=== PATIENT | male | born 1950 | race Caucasian/White ===

== ENCOUNTER 2019-03-08 05:56 | Inpatient (IN) ==
[2019-03-08] MEDS ORDERED: Sodium Chloride 0.9% 1,000 ML PRIMARY IV ONE (06:04)
[2019-03-08] MEDS ORDERED: DEXAMETHASONE PF 10 MG/1 ML VIAL IVP ONE (06:04)
[2019-03-08 06:23] LABS: BASOPHILS # (AUTO) 0.02 10*3/UL; BASOPHILS % (AUTO) 0.2 % (0-1); EOSINOPHILS # (AUTO) 0.24 10*3/UL; EOSINOPHILS % (AUTO) 2.4 % (0-8); Hematocrit [HCT] 47.4 % (42.0-52.0); Hemoglobin [HGB] 15.4 g/dL (14.0-18.0); LYMPHOCYTES # (AUTO) 0.99 10*3/uL; MEAN CORPUSCULAR HEMOGLOBIN 29.3 PG (27-31); MEAN CORPUSCULAR HGB CONC 32.5 g/dL (33-37); MEAN CORPUSCULAR VOLUME 90.3 FL (80-90); MEAN PLATELET VOLUME 9.3 FL (7.4-12.2); MONOCYTES % (AUTO) 6.1 % (5-15); NEUTROPHILS # (AUTO) 7.93 10*3/UL; RED BLOOD COUNT 5.25 10^6/uL (4.70-6.10)
--- NOTE | 2019-03-08 06:29 | EKG ---
[address] [place] [address] Measurements Intervals [place] Rate: 93 P: 40 OH: 156 QRS: -46 QRSD: 109 T: 51 QT: 347 QTc: 397 Interpretive Statements SINUS RHYTHM MARKED LEFT AXIS DEVIATION [QRS AXIS < -30] NONSPECIFIC T-WAVE ABNORMALITY Compared to ECG 01/18/2019 20:20:54 Left-axis deviation now present T-wave abnormality now present Ventricular premature complex(es) no longer present Left anterior fascicular block no longer present Electronically Signed On 03-08-19 08:35:56 MDT by Luis Enrique Green MD [email or web address]
[2019-03-08 06:45] LABS: PLATELET MORPHOLOGY COMMENT NORMAL MORPHOLOGY (NORM); RBC MORPHOLOGY COMMENT NORMAL MORPHOLOGY (NORM); WBC MORPHOLOGY COMMENT NORMAL MORPHOLOGY (NORM)
[2019-03-08 06:46] LABS: BLOOD UREA NITROGEN 15 mg/dL (7-22); BUN/CREATININE RATIO 18.75 (6-20); SERUM ALBUMIN 4.1 g/dL (3.5-4.8)
--- NOTE | 2019-03-08 07:08 | PDOC ---
Dyspnea HPI - General Chief Complaint: Respiratory Complaint Stated Complaint: SOB Date Seen by Provider: 03/08/19 Time Seen by Provider: 05:55 Source: POSITIVE: Patient, EMS Exam Limitations: POSITIVE: No limitations Treatment Prior to Arrival: REPORTS: Other (The patient has received 1 DuoNeb and 2 albuterol neb treatments in route) Nurse's Notes Reviewed & Considered: Yes EMS Report Reviewed & Considered: Verbal - History of Present Illness Initial Comments: The patient is a 68-year-old male who is brought to the emergency department by ambulance with complaints of increased wheezing and shortness of breath. The patient has had upper respiratory symptoms for the past several weeks. He was evaluated here at the end of December and diagnosed with a pneumonitis and treated with Zithromax. He states over the past couple of days he has had increased wheezing and shortness of breath. This worsened tonight and he ended up calling EMS. On arrival the patient's oxygen saturations were in the low to mid 80s on room air. He did have noted bilateral wheezing. He has received a DuoNeb as well as 2 albuterol neb treatments in route. EMS was unable to establish IV access in route. The patient denies any current chest pain however he states he has been having some intermittent pain in his left chest. He denies fevers or chills. He states that he does not wear oxygen typically at home. He has had problems with recurrent sinus infections and has had several procedures done by the ear nose and throat doctor in [place]. - Patient Home Medications Home Medications: Home Medications Amlodipine Bes/Olmesartan Med [Barry 5-40 mg Tablet] 1 ea PO DAILY 01/18/19 Ipratropium Brom HFA Inhaler [Atrovent HFA Inhaler] 200 puff INHALATION BID 01/18/19 Lisinopril [Zestril] 40 mg PO DAILY 01/18/19 - Patient Allergies Allergies/Adverse Reactions: Allergies Allergy/AdvReac Type Severity Reaction Status Date / Time No Known Allergies Allergy Verified 03/08/19 06:02 Past Medical History - tyler STARKEY History: Denies History Cardiovascular History: Hypertension Respiratory History: COPD, Shortness of Breath, Sleep Apnea, Home CPAP Use Gastrointestinal History: Denies History Additional Gastrointestinal History: HEMMORIDS Genitourinary History: Denies History Endocrine History: Denies History Musculoskeletal History: Denies History, Gout, Back Injury Neurological History: Denies History Blood Disorders: Denies History Psychiatric History: Denies History History of Sexually Transmitted Diseases: No Cancer History: Denies History History of MDRO: No History of Other Communicable Diseases: No Alcohol Use: Heavy In the Past 12 Months, Have Used or Abuse Any Substance: None Previous Surgical History: Yes Type / Date of Surgery: Hemorrhoidectomy, LEFT KNEE, RIGHT WRIST Anesthesia Reactions: No Malignant Hyperthermia: No Significant Family History: No pertinent family hx Past Medical History Reviewed: Reviewed - No Changes ROS - Limitations ROS Limitations: No Limitations Constitution: DENIES: Chills, Fever Cardiovascular: DENIES: Chest Pain (No current chest pain, reports intermittent chest pain the left chest) Respiratory: REPORTS: Cough Non Productive, Shortness Of Breath, Wheezing Neurological: DENIES: Headache Gastrointestinal: DENIES: Abdominal Pain, Nausea, Vomitting, Diarrhea Musculoskeletal: REPORTS: Lower Extremity Swelling Eyes: REPORTS: Denies Symptoms ENT: REPORTS: Denies Symptoms Skin: DENIES: Rash Dyspnea Physical Exam - General Appearance General Appearance: REPORTS: Alert, Cooperative, No Acute Distress - HEENT HEENT: POSITIVE: Head Inspection Nml, Eyes Inspection Nml, Ears Inspection Nml, Nose Inspection Nml, Pharynx Inspect. Nml - Neck Neck: DENIES: JVD Present - Respiratory Respiratory: REPORTS: Other (He does have diminished breath sounds bilaterally with some expiratory wheezes noted) - Cardiovascular Cardiovascular: REPORTS: Regular Rate and Rhythm, Heart Sounds Normal Peripheral Pulses: Dorsalis-pedis (R): 2+, Dorsalis-pedis (L): 2+ - Abdomen Abdomen: Soft: (All Quadrants), Denies Tenderness: (All Quadrants) - Skin Skin: REPORTS: Intact, No Rash - Extremities Extremity: Normal ROM: (All Extremities), Normal Inspection: (All Extremities) - Neurological / Psychological Neurological: POSITIVE: Oriented X3, roll operator Normal As Tested, Motor Normal, Sensation Normal, Other (No focal neurologic deficits) Dyspnea Progress - Results Reviewed by me Xrays/CTs/US Reviewed by me: Yes Discussed with Radiologist: Yes Radiology Findings: Chest x-ray shows atelectasis versus infiltrate in the right lower lobe as well as cardiomegaly with some consideration for pulmonary edema per radiologist. Lab Results Reviewed by Me: Yes CBC and BMP: 03/08/19 06:19 05/17/19 06:19 Lab Results:: Laboratory Results 03/08/19 03/08/19 03/08/19 06:19 06:19 06:19 WBC 9.80 RBC 5.25 Hgb 15.4 Hct 47.4 MCV 90.3 H MCH 29.3 MCHC 32.5 L RDW Std Deviation 44.5 RDW Coeff of David 13.6 Plt Count 238 MPV 9.3 Immature Gran % (Auto) 0.2 Neut % (Auto) 81.0 H Lymph % (Auto) 10.1 [place]oula % (Auto) 6.1 Eos % (Auto) 2.4 Baso % (Auto) 0.2 Immature Gran # (Auto) 0.02 Neut # (Auto) 7.93 Lymph # (Auto) 0.99 [place]ata[place]oula # (Auto) 0.60 Eos # (Auto) 0.24 Baso # (Auto) 0.02 WBC Morphology Comment Normal morphology Plt Morphology Comment Normal morphology RBC Morph Comment Normal morphology D-Dimer VBG pH VBG pCO2 VBG HCO3 VBG Base Excess Sodium Potassium Chloride Carbon Dioxide Anion Gap BUN Creatinine Estimated GFR BUN/Creatinine Ratio Glucose Calculated Osmolality Lactic Acid Calcium Magnesium 1.9 Total Bilirubin AST ALT Alkaline Phosphatase Troponin I < 0.012 C-Reactive Protein 2.0 H NT-Pro-B Natriuret Pep 407 H Total Protein Albumin Globulin Albumin/Globulin Ratio 03/08/19 03/08/19 03/08/19 06:19 06:19 06:19 WBC RBC Hgb Hct MCV MCH MCHC RDW Std Deviation RDW Coeff of David Plt Count MPV Immature Gran % (Auto) Neut % (Auto) Lymph % (Auto) [place]oula % (Auto) Eos % (Auto) Baso % (Auto) Immature Gran # (Auto) Neut # (Auto) Lymph # (Auto) [place]ata[place]oula # (Auto) Eos # (Auto) Baso # (Auto) WBC Morphology Comment Plt Morphology Comment RBC Morph Comment D-Dimer 318 H VBG pH VBG pCO2 VBG HCO3 VBG Base Excess Sodium 143 Potassium 3.4 L Chloride 102 Carbon Dioxide 28 Anion Gap 13 BUN 15 Creatinine 0.8 Estimated GFR > 60 BUN/Creatinine Ratio 18.75 Glucose 132 H Calculated Osmolality 298.0 H Lactic Acid 2.2 H Calcium 9.2 Magnesium Total Bilirubin 0.6 AST 37 ALT 49 Alkaline Phosphatase 63 Troponin I C-Reactive Protein NT-Pro-B Natriuret Pep Total Protein 7.0 Albumin 4.1 Globulin 2.9 Albumin/Globulin Ratio 1.40 03/08/19 06:29 WBC RBC Hgb Hct MCV MCH MCHC RDW Std Deviation RDW Coeff of David Plt Count MPV Immature Gran % (Auto) Neut % (Auto) Lymph % (Auto) [place]oula % (Auto) Eos % (Auto) Baso % (Auto) Immature Gran # (Auto) Neut # (Auto) Lymph # (Auto) [place]oula # (Auto) Eos # (Auto) Baso # (Auto) WBC Morphology Comment Plt Morphology Comment RBC Morph Comment D-Dimer VBG pH 7.38 VBG pCO2 46 VBG HCO3 27 H VBG Base Excess 2 Sodium Potassium Chloride Carbon Dioxide Anion Gap BUN Creatinine Estimated GFR BUN/Creatinine Ratio Glucose Calculated Osmolality Lactic Acid Calcium Magnesium Total Bilirubin AST ALT Alkaline Phosphatase Troponin I C-Reactive Protein NT-Pro-B Natriuret Pep Total Protein Albumin Globulin Albumin/Globulin Ratio EKG Interpreted/Reviewed By Me:: Yes EKG Interpretation:: POSITIVE: Other (EKG shows normal sinus rhythm with a rate of 93, no ST segment elevation or depression) - Patient's Progress MDM / ED Course: An IV was established, blood cultures, lactate and venous blood gas were obtained. The patient's venous blood gas revealed a pH of 7.46. EKG shows normal sinus rhythm with no acute ST segment depression or elevation. The patient did receive Solu-Medrol return 125 mg IV. The patient's oxygen saturations were maintained on 4 L per nasal cannula. His chest x-ray shows atelectasis versus infiltrate in the right lower lobe as well as cardiomegaly and increased pulmonary vasculature per radiologist. His white blood cell count is normal and his CRP is mildly elevated at 2.0. His troponin is normal, d- dimer is mildly elevated at 300. His BNP is 400. His clinical presentation is most consistent with COPD exacerbation with possible right lower lobe pneumonia. He did receive Rocephin and Zithromax after cultures were drawn. Because of his elevated d-dimer and hypoxia a CTA of the chest was ordered and is pending at this time. I did discuss the patient with Dr. Tolentino and he is agreed to admit the patient for further care. The patient and his son were in agreement with this plan. - Consult Counseled: POSITIVE: Patient, RE: Lab Results, RE: Radiology Results, RE: DX, RE: Need for F/U Patient Care Time - Estimated PCT Patient Care Time (In Minutes): 30 Vital Signs - Recent Vital Signs Vital Signs: Vital Signs (Last 8 hours) Temp Pulse Resp BP Pulse Ox 03/08/19 06:50 97.4 F 106 H 24 141/88 93 - VS Reviewed Vital Signs Reviewed: Yes Discharge Clinical Impression: COPD exacerbation, Hypoxia, Pneumonia Discharge Disposition: Admit to Inpatient Condition: Fair Follow Up With: NONE,NONE [Primary Care Provider] - Date Decision to Admit to Inpatient: 03/08/19 Time Decision to Admit to Inpatient: 08:30
[2019-03-08 07:33] LABS: VENOUS PH 7.38 (7.32-7.42)
--- NOTE | 2019-03-08 08:08 | DI ---
XR CXR 1VW 03/08/2019 6:06 AM HISTORY: [facility] [place] DI ^Dyspnea Comparison: 11/21/2018. Findings: A single portable frontal view of the chest is submitted. Images demonstrate patchy right lung base opacity. The left lung base is observed by the heart shadow which limits evaluation for consolidation or a pleural effusion. There is no pneumothorax. The cardi omediastinal silhouette is enlarged with mildly increased pulmonary vasculature. The osseous structur es are not significantly changed. Impression: 1. Patchy right lung base opacity could represent atelectasis versus early consolidation in the corre ct clinical setting. 2. Cardiomegaly with mildly increased pulmonary vasculature that could represent technique versus ear ly pulmonary edema in the setting of heart failure. 3. The left lung base is obscured by the heart shadow, limiting evaluation for consolidation or pleur al effusion.
[2019-03-08] MEDS ORDERED: cefTRIAXone Inj 2 GM in Sodium Chloride 0.9% 100 ML IV ONE (08:25)
--- NOTE | 2019-03-08 11:58 | PDOC ---
HPI - History of Present Illness History of Present Illness: This very nice 68-year-old gentleman HEENT in the ER for increased shortness of breath and wheezing he's been having an upper respiratory symptoms for over the last 2 weeks. He said they put him on CPAP he had a sleep study in the past which was abnormal he was hypoxic in the mid 80s in the ER DuoNeb and albuterol treatments were given the also had his sinuses operated on by a physician in [place] does not remember the name He will be admitted for COPD exacerbation Past Medical History Medical History: COPD, emphysema, hypertension Surgical History: Sinus surgery Tobacco Use: Former Smoker In the Past 12 Months, Have Used or Abuse Any of the Following Substance: None Medication / Allergies Home Medications: Home Medications Medication Instructions Recorded Confirmed Amlodipine Bes/Olmesartan Med 1 ea PO DAILY 01/18/19 03/08/19 [Barry 5-40 mg Tablet] Ipratropium Brom HFA Inhaler 200 puff INHALATION BID 01/18/19 03/08/19 [Atrovent HFA Inhaler] Lisinopril [Zestril] 40 mg PO DAILY 01/18/19 03/08/19 Allergies/Adverse Reactions: Allergies Allergy/AdvReac Type Severity Reaction Status Date / Time No Known Allergies Allergy Verified 03/08/19 06:02 Review of Systems - Review of Systems All Systems: Reviewed & No Additional Complaints Except as Stated - Respiratory Respiratory: REPORTS: Cough - Cardiovascular Cardiovascular: DENIES: Negative System Review, Chest Pain, Edema, Syncope, P alpitations, Orthopnea, Paroxysmal Nocturnal Dyspnea, Other, See HPI - Gastrointestinal Gastrointestinal / Abdominal: DENIES: Negative System Review, Nausea, Vomiting, Diarrhea, Constipation, Abdominal Pain, Bloody Stool, Poor Appetite, Heartburn, Regurgitation, Bloating, Lactose Intolerance, Melena, Bright Red Blood per Rectum, Other, See HPI Exam - Vitals Vital Signs: Vital Signs Temperature 97.4 F Temperature Source Temporal Artery Scan Pulse Rate [Pulse Oximeter] 106 Respiratory Rate 24 Blood Pressure [Left Arm] 141/88 Pulse Ox 93 Oxygen Flow Rate 10 Oxygen Delivery Method Non-Rebreather Mask Height 5 ft 8 in Weight 285 lb - General General Appearance: No Acute Distress, Cooperative - Head Head Exam: Normal Inspection, Normocephalic, Atraumatic - Eye Eye Exam: POSITIVE: Normal Appearance, PERRL, EOMI, No Scleral Icterus - Neck Neck Exam: Normal Inspection, Full ROM, No Tenderness, No Lymphadenopathy, No Thyromegaly, JVP is not Raised - Respiratory Respiratory Exam: POSITIVE: Decreased Breath Sounds, Wheezes - Cardiovascular Cardiovascular Exam: POSITIVE: RRR, No Murmur, No Clicks, No Gallops, No Rubs, PMI Non-Displaced - GI/Abdominal GI/Abdominal Exam: POSITIVE: Normal Bowel Sounds, Non Tender, Non Distended, Soft, No Masses, No Hepatomegaly, No Splenomegaly, No Organomegaly - Extremities Extremities Exam: POSITIVE: No Clubbing Present, No Edema Present, No Cyanosis Present Results - Labs CBC and BMP: 03/08/19 06:19 03/08/19 06:19 Assessment and Plan - Patient Problems (1) COPD exacerbation Current Visit: Yes Status: Acute Comment: DuoNeb/steroid OLGA/antibiotics Code(s): J44.1 - Chronic obstructive pulmonary disease with (acute) exacerbation (2) Hypoxia Current Visit: Yes Status: Acute Comment: Secondary to COPD exacerbation and possible pneumonia on chest x-ray will order a CTA Code(s): R09.02 - Hypoxemia (3) Pneumonia Current Visit: Yes Status: Acute Comment: Continue antibiotics for now order CTA Code(s): J18.9 - Pneumonia, unspecified organism
--- NOTE | 2019-03-08 12:06 | DI ---
CT CTA Chest Non-Coronary WWO 03/08/2019 7:40 AM History: [facility] [place], elevated d-dimer Comparison: Chest x-ray from earlier the same day. CTA PE 01/18/2019. Procedure: CT angiography of the pulmonary arteries was performed after the administration of 70 mL o f Ultravist 370 intravenous contrast. Findings: Patient body habitus creates artifact that limits evaluation of fine anatomic detail. Ther e is normal opacification of the pulmonary arteries with no evidence of filling defect. Evaluation of the lungs demonstrates atelectasis and airspace disease in the medial right middle lobe and dependen t left lower lobe. There is no pneumothorax or pleural effusion. No pulmonary nodules are noted. Ther e is mild diffuse bronchial wall thickening without endobronchial lesion. There is no mediastinal or hilar lymphadenopathy. The aorta and branch vessels demonstrate normal cou rse and caliber. Atheromatous aortic and coronary artery calcifications are present. Heart size is en larged with no pericardial effusion. The thyroid exhibits normal CT morphology. The visualized upper abdominal structures are unremarkable. The osseous structures definitely changed. There is no evidence of acute or healing rib fractures. Th ere is mild bilateral gynecomastia. Impression: 1. No main or segmental pulmonary embolism. 2. Medial right middle lobe and dependent left lower lobe atelectasis and airspace disease. Repeat im aging 6 weeks following completion of therapy is recommended in order to ensure resolution. 3. There is mild diffuse bronchial wall thickening without endobronchial lesion. This is a non-specif ic finding that is most commonly seen in the setting of acute or chronic bronchitis, as well as react josé miguel airways disease. 4. Cardiomegaly without pericardial effusion or evidence of pulmonary edema.
[2019-03-08] MEDS ORDERED: FLUTICASONE/SALMETEROL 100/50 UD INHALER INH SCH (12:14)
[2019-03-08] MEDS ORDERED: LIDOCAINE W/ SODIUM BICARB 0.5 ML SYR SUBD PRN (12:14)
[2019-03-08] MEDS ORDERED: AMLODIPINE BES PO SCH (12:14)
[2019-03-08] MEDS ORDERED: OLMESARTAN MED PO SCH (12:14)
[2019-03-08] MEDS ORDERED: ALBUTEROL SULFATE 2.5 MG/3 ML NEB PRN (12:14)
[2019-03-08] MEDS: TIOTROPIUM BROMIDE 18 MCG CAPSULE INH SCH (13:00)
[2019-03-08] MEDS: LISINOPRIL 20 MG TABLET PO SCH (13:06)
[2019-03-08] MEDS: AmLODIPine Tab 5 MG TABLET PO SCH (13:11)
[2019-03-08] MEDS: Olmesartan Tab 40 MG TAB PO SCH (13:15)
[2019-03-08] MEDS: HEPARIN 5000 UNIT/1 ML SUBCUT SCH ×2 (13:16→19:35)
[2019-03-08] MEDS: methylPREDNISolone 125 MG/2 ML VIAL IVP SCH ×2 (13:16→19:35)
[2019-03-08] MEDS: Sodium Chloride 0.9% 1,000 ML PRIMARY IV SCH ×2 (13:17→23:35)
[2019-03-08] MEDS: IPRATROPIUM/ALBUTEROL SULFATE 3 ML NEB NEB SCH ×3 (15:07→18:42)
[2019-03-08] MEDS: ARFORMOTEROL NEB SOLN 15 MCG/2 ML NEB SCH (18:42)
[2019-03-08] MEDS: BUDESONIDE 0.25 MG/2 ML AMPUL.NEB NEB SCH (18:42)
[2019-03-09] MEDS: methylPREDNISolone 125 MG/2 ML VIAL IVP SCH ×2 (00:50→05:20)
[2019-03-09 04:46] LABS: BASOPHILS # (AUTO) 0 10*3/UL; BASOPHILS % (AUTO) 0 % (0-1); EOSINOPHILS # (AUTO) 0.01 10*3/UL; EOSINOPHILS % (AUTO) 0.2 % (0-8); Hematocrit [HCT] 43.8 % (42.0-52.0); LYMPHOCYTES # (AUTO) 0.45 10*3/uL; MEAN CORPUSCULAR HEMOGLOBIN 29.3 PG (27-31); MEAN CORPUSCULAR VOLUME 91.6 FL (80-90); MEAN PLATELET VOLUME 9.9 FL (7.4-12.2); MONOCYTES # (AUTO) 0.08 10*3/UL (0.3-0.8); MONOCYTES % (AUTO) 1.6 % (5-15); NEUTROPHILS % (AUTO) 89.3 % (50-80); RED BLOOD COUNT 4.78 10^6/uL (4.70-6.10)
[2019-03-09 04:59] LABS: BLOOD UREA NITROGEN 16 mg/dL (7-22); BUN/CREATININE RATIO 22.85 (6-20)
[2019-03-09 05:05] LABS: PLATELET MORPHOLOGY COMMENT NORMAL MORPHOLOGY (NORM); RBC MORPHOLOGY COMMENT NORMAL MORPHOLOGY (NORM); WBC MORPHOLOGY COMMENT NORMAL MORPHOLOGY (NORM)
[2019-03-09] MEDS: HEPARIN 5000 UNIT/1 ML SUBCUT SCH ×3 (05:19→19:34)
[2019-03-09] MEDS: IPRATROPIUM/ALBUTEROL SULFATE 3 ML NEB NEB SCH ×4 (06:09→18:35)
[2019-03-09] MEDS: ARFORMOTEROL NEB SOLN 15 MCG/2 ML NEB SCH ×2 (06:10→18:35)
[2019-03-09] MEDS: BUDESONIDE 0.25 MG/2 ML AMPUL.NEB NEB SCH ×2 (06:11→18:36)
[2019-03-09] MEDS: TIOTROPIUM BROMIDE 18 MCG CAPSULE INH SCH (06:11)
[2019-03-09] MEDS: Sodium Chloride 0.9% 1,000 ML PRIMARY IV SCH (08:14)
[2019-03-09] MEDS: AmLODIPine Tab 5 MG TABLET PO SCH (08:15)
[2019-03-09] MEDS: Olmesartan Tab 40 MG TAB PO SCH (08:15)
[2019-03-09] MEDS: LISINOPRIL 20 MG TABLET PO SCH (08:15)
[2019-03-09] MEDS: predniSONE Tab 20 MG TAB PO SCH (09:07)
[2019-03-09] MEDS ORDERED: cefTRIAXone Inj 2 GM in Sodium Chloride 0.9% 100 ML IV SCH (09:30)
[2019-03-09] MEDS ORDERED: AZITHROMYCIN 250 MG TABLET PO SCH (10:00)
[2019-03-09] MEDS ORDERED: FUROSEMIDE 10 MG/1 ML - 4 ML IVP ONE (11:00)
--- NOTE | 2019-03-09 11:02 | PDOC(PROG) ---
Interval History: The patient feels much better than he we came and he is breathing a lot better. He is drinking enough fluids we'll stop his IV fluids. Objective : Data - Labs CBC and BMP: 03/09/19 03:45 03/09/19 03:45 Objective : Exam - General General Appearance: Cooperative - Respiratory Respiratory Exam: Decreased Breath Sounds, Wheezes - Cardiovascular Cardiovascular Exam: RRR, No Murmur, No Clicks, No Gallops, No Rubs, PMI Non-Displaced - GI/Abdominal GI/Abdominal Exam: Normal Bowel Sounds, Non Tender, Non Distended, Soft, No Masses, No Hepatomegaly, No Splenomegaly, No Organomegaly - Extremities Extremities Exam: +1 Edema Assessment and Plan - Patient Problems (1) COPD exacerbation Current Visit: Yes Status: Acute Comment: Continue current medications mild improvement Code(s): J44.1 - Chronic obstructive pulmonary disease with (acute) exacerbation (2) Hypoxia Current Visit: Yes Status: Acute Comment: Patient has a history of sleep apnea he does not wear his CPAP it bothers him it gives him mild mouth sores and he refuses to do this he knows that if he does not wear to assist sleep visit will be in great and could eventually get heart failure from this and pulmonary hypertension which most likely already has echo would be needed unavailable at this time here I did tell this to the patient in my need to do this as an outpatient if he is not in the hospital until next week Code(s): R09.02 - Hypoxemia (3) Pneumonia Current Visit: Yes Status: Acute Comment: Continue antibiotics Code(s): J18.9 - Pneumonia, unspecified organism
[2019-03-09] MEDS ORDERED: LIDOCAINE W/ SODIUM BICARB 0.5 ML SYR ONE (13:18)
[2019-03-10] MEDS: HEPARIN 5000 UNIT/1 ML SUBCUT SCH ×3 (03:54→20:17)
[2019-03-10] MEDS: ARFORMOTEROL NEB SOLN 15 MCG/2 ML NEB SCH ×2 (06:10→18:40)
[2019-03-10] MEDS: IPRATROPIUM/ALBUTEROL SULFATE 3 ML NEB NEB SCH ×4 (06:12→18:39)
[2019-03-10] MEDS: BUDESONIDE 0.25 MG/2 ML AMPUL.NEB NEB SCH ×2 (06:12→18:40)
[2019-03-10] MEDS: predniSONE Tab 20 MG TAB PO SCH (09:15)
[2019-03-10] MEDS: LISINOPRIL 20 MG TABLET PO SCH (09:15)
[2019-03-10] MEDS: Olmesartan Tab 40 MG TAB PO SCH (09:15)
[2019-03-10] MEDS: AmLODIPine Tab 5 MG TABLET PO SCH (09:15)
[2019-03-10] MEDS: cefTRIAXone Inj 2 GM in Sodium Chloride 0.9% 100 ML IV SCH (09:16)
--- NOTE | 2019-03-10 10:33 | PDOC(PROG) ---
Interval History: Patient is starting to move a little bit more air today. No chest pain nausea vomiting he does have a Yap both eyes he said is been having this for a week or 2. Objective : Data - Labs CBC and BMP: 03/09/19 03:45 03/09/19 03:45 Objective : Exam - General General Appearance: Cooperative - ENT Eye: Conjunctival Inflammation: Bilateral Eye (bacterial) - Respiratory Respiratory Exam: Decreased Breath Sounds, Wheezes - Cardiovascular Cardiovascular Exam: RRR, No Murmur, No Clicks, No Gallops, No Rubs, PMI Non- Displaced - GI/Abdominal GI/Abdominal Exam: Normal Bowel Sounds, Non Tender, Non Distended, Soft, No Masses, No Hepatomegaly, No Splenomegaly, No Organomegaly - Extremities Extremities Exam: +1 Edema - Neurological Neurological Exam: Alert, Oriented x 3, No Facial Droop, Speech Intact / Clear Assessment and Plan - Patient Problems (1) COPD exacerbation Current Visit: Yes Status: Acute Comment: Continue antibiotics and steroids and inhalers. I do believe patient most likely has a right-sided heart failure as well cor pulmonale of course he needs an echo I will order it but I don't know when the tech will be coming in to the hospital to do it from [place]. I will put him on Lasix IV twice a day as well Code(s): J44.1 - Chronic obstructive pulmonary disease with (acute) exacerbation (2) Hypoxia Current Visit: Yes Status: Acute Comment: Secondary to COPD fluid overload and possible pneumonia Code(s): R09.02 - Hypoxemia (3) Pneumonia Current Visit: Yes Status: Acute Comment: CT of the chest was done continue IV antibiotics Code(s): J18.9 - Pneumonia, unspecified organism (4) Bacterial conjunctivitis of both eyes Current Visit: Yes Status: Acute Comment: Start erythromycin eye ointment Code(s): H10.9 - Unspecified conjunctivitis
[2019-03-10] MEDS: AZITHROMYCIN 250 MG TABLET PO SCH (11:21)
[2019-03-10] MEDS: ERYTHROMYCIN BASE 1 GM EYE OINT EACH EYE SCH ×2 (11:21→20:17)
[2019-03-10] MEDS: FUROSEMIDE 10 MG/1 ML - 2 ML VIAL IVP SCH (13:17)
[2019-03-11] MEDS: HEPARIN 5000 UNIT/1 ML SUBCUT SCH ×3 (04:23→22:51)
[2019-03-11 04:53] LABS: BASOPHILS # (AUTO) 0 10*3/UL; BASOPHILS % (AUTO) 0 % (0-1); EOSINOPHILS # (AUTO) 0.01 10*3/UL; EOSINOPHILS % (AUTO) 0.1 % (0-8); Hematocrit [HCT] 44.2 % (42.0-52.0); Hemoglobin [HGB] 14.1 g/dL (14.0-18.0); LYMPHOCYTES # (AUTO) 1.21 10*3/uL; MEAN CORPUSCULAR HEMOGLOBIN 29.8 PG (27-31); MEAN CORPUSCULAR HGB CONC 31.9 g/dL (33-37); MEAN CORPUSCULAR VOLUME 93.4 FL (80-90); MONOCYTES # (AUTO) 0.75 10*3/UL (0.3-0.8); MONOCYTES % (AUTO) 9.6 % (5-15); NEUTROPHILS # (AUTO) 5.83 10*3/UL; NEUTROPHILS % (AUTO) 74.7 % (50-80); RED BLOOD COUNT 4.73 10^6/uL (4.70-6.10)
[2019-03-11 05:05] LABS: BLOOD UREA NITROGEN 22 mg/dL (7-22); SERUM ALBUMIN 3.3 g/dL (3.5-4.8)
[2019-03-11 05:07] LABS: PLATELET MORPHOLOGY COMMENT NORMAL MORPHOLOGY (NORM); RBC MORPHOLOGY COMMENT NORMAL MORPHOLOGY (NORM); WBC MORPHOLOGY COMMENT NORMAL MORPHOLOGY (NORM)
[2019-03-11] MEDS: FUROSEMIDE 10 MG/1 ML - 2 ML VIAL IVP SCH ×2 (06:54→12:40)
[2019-03-11] MEDS: BUDESONIDE 0.25 MG/2 ML AMPUL.NEB NEB SCH ×2 (07:00→18:43)
[2019-03-11] MEDS: IPRATROPIUM/ALBUTEROL SULFATE 3 ML NEB NEB SCH ×4 (07:00→18:42)
[2019-03-11] MEDS: ARFORMOTEROL NEB SOLN 15 MCG/2 ML NEB SCH ×2 (07:01→18:43)
[2019-03-11] MEDS: TIOTROPIUM BROMIDE 18 MCG CAPSULE INH SCH (07:41)
[2019-03-11] MEDS: predniSONE Tab 20 MG TAB PO SCH (08:31)
[2019-03-11] MEDS: Olmesartan Tab 40 MG TAB PO SCH (08:31)
[2019-03-11] MEDS: cefTRIAXone Inj 2 GM in Sodium Chloride 0.9% 100 ML IV SCH (08:31)
[2019-03-11] MEDS: ERYTHROMYCIN BASE 1 GM EYE OINT EACH EYE SCH ×2 (08:31→22:51)
[2019-03-11] MEDS: AmLODIPine Tab 5 MG TABLET PO SCH (08:31)
[2019-03-11] MEDS: LISINOPRIL 20 MG TABLET PO SCH (09:24)
[2019-03-11] MEDS: AZITHROMYCIN 250 MG TABLET PO SCH (11:03)
[2019-03-11] MEDS ORDERED: POTASSIUM CHLORIDE 20 MEQ TAB PO ONE (20:50)
--- NOTE | 2019-03-11 20:56 | PDOC(PROG) ---
Date of Service: 03/11/19 Time of Service: 20:52 Interval History: patient seen, evaluated earlier today. no chest pains states shortness of breath is improved but still present was not on oxygen prior to this hospital stay (but I reviewed an ABG done in ER 01/18/2019--revealed hypoxemia) has not been able to tolerate CPAP due to blistering in mouth, roof of mouth, lips. no prior ECHO no prior cardiac workup known. Objective : Data - Labs CBC and BMP: 03/11/19 04:29 03/11/19 04:29 Objective : Exam - General General Appearance: No Acute Distress, Cooperative Additional General Exam Details: Vital Signs - Last Taken Temperature 97.9 F 03/11/19 19:37 Pulse Rate 92 03/11/19 19:37 Respiratory Rate 22 03/11/19 19:37 Blood Pressure 116/70 03/11/19 19:37 Pulse Ox 91 03/11/19 19:37 - Eye Eye Exam: No Scleral Icterus - ENT ENT Exam: Normal Oropharynx, Mucous Membranes Dry (lips dry, lesions noted--look crusted, no draining vesicular lesions.) - Neck Neck Exam: JVP is not Raised - Respiratory Respiratory Exam: Breathing Non Labored, Coarse Breath Sounds - Cardiovascular Cardiovascular Exam: RRR, No Murmur, No Clicks, No Gallops, No Rubs, No JVD - GI/Abdominal GI/Abdominal Exam: Normal Bowel Sounds, Non Tender, Non Distended, Soft - Extremities Extremities Exam: No Clubbing Present, No Cyanosis Present, +1 Edema - Neurological Neurological Exam: Alert, Oriented x 3, No Facial Droop, Speech Intact / Clear, Moves All Extremities Equally Assessment and Plan - Patient Problems (1) Acute on chronic respiratory failure with hypoxemia Current Visit: Yes Status: Acute Code(s): J96.21 - Acute and chronic respiratory failure with hypoxia (2) COPD exacerbation Current Visit: Yes Status: Acute Code(s): J44.1 - Chronic obstructive pulmonary disease with (acute) exacerbation (3) Hypoxia Current Visit: Yes Status: Acute Code(s): R09.02 - Hypoxemia (4) Pneumonia Current Visit: Yes Status: Acute Code(s): J18.9 - Pneumonia, unspecified organism Qualifiers: Pneumonia type: due to unspecified organism Laterality: right Lung location: middle lobe of lung Qualified Code(s): J18.1 - Lobar pneumonia, unspecified organism (5) Bacterial conjunctivitis of both eyes Current Visit: Yes Status: Acute Code(s): H10.9 - Unspecified conjunctivitis - Assessment / Plan Additional Assessment/Plan Details: patient likely with COPD exacerbation and pneumonia probably has right heart failure. given hypoxemic respiratory failure, inability to tolerate CPAP, needs continuous oxygen cardiac eval? rescan sinuses as patient states they have been dry despite sinus surgery in the fall ECHO continue antibiotics and steroids.
[2019-03-11] MEDS ORDERED: GUAIFENESIN 600 MG TABLET PO ONE (21:01)
--- NOTE | 2019-03-11 22:17 | DI ---
EXAM: CT Maxillofacial Without Intravenous Contrast CLINICAL HISTORY: Postnasal drip TECHNIQUE: Axial computed tomography images of the face without intravenous contrast. COMPARISON: No relevant prior studies available. FINDINGS: Bones/joints: No acute fracture. Soft tissues: Unremarkable. Orbits: Unremarkable. Sinuses: Mild to moderate mucosal thickening in the paranasal sinuses, which may represent sinusitis. IMPRESSION: Mild to moderate mucosal thickening in the paranasal sinuses, which may represent sinusitis. No air-fluid levels.
[2019-03-12] MEDS: HEPARIN 5000 UNIT/1 ML SUBCUT SCH (04:07)
[2019-03-12 04:51] LABS: BLOOD UREA NITROGEN 25 mg/dL (7-22); BUN/CREATININE RATIO 31.25 (6-20)
[2019-03-12] MEDS: ARFORMOTEROL NEB SOLN 15 MCG/2 ML NEB SCH (06:55)
[2019-03-12] MEDS ORDERED: TIOTROPIUM BROMIDE 18 MCG CAPSULE INH SCH (07:00)
[2019-03-12] MEDS: FUROSEMIDE 10 MG/1 ML - 2 ML VIAL IVP SCH (07:27)
[2019-03-12] MEDS ORDERED: GUAIFENESIN 600 MG TABLET PO SCH (09:00)
[2019-03-12] MEDS: cefTRIAXone Inj 2 GM in Sodium Chloride 0.9% 100 ML IV SCH (09:47)
[2019-03-12] MEDS: LISINOPRIL 20 MG TABLET PO SCH (09:48)
[2019-03-12] MEDS: predniSONE Tab 20 MG TAB PO SCH (09:48)
[2019-03-12] MEDS: ERYTHROMYCIN BASE 1 GM EYE OINT EACH EYE SCH (09:48)
[2019-03-12] MEDS: AZITHROMYCIN 250 MG TABLET PO SCH (10:52)
[2019-03-12 11:12] VITALS: BP 153/88; RESP 20; TEMP 97.4; O2SAT 93
--- NOTE | 2019-03-12 12:54 | DCSUMMARY ---
Hospitalization Summary Admit Date: 03/08/2019 Discharge Date: 03/12/19 Primary Diagnosis:: congestive heart failure, cor pulmonale, question CAD Hospital Course: This very pleasant 68-year-old male who presented with hypoxia, and was admitted and the thought that he had cor pulmonale or right-sided congestive heart failure was entertained. He was placed on Lasix, a CTA of the chest was done that ruled out pulmonary emboli but was significant for possible right middle lobe early infiltrates versus atelectasis. He was placed on Rocephin, Zithromax, and steroids. His oxygenation has not really changed in the last 5 days. I'm not able to get an echocardiogram here, and I'm also concerned that the patient has risk factors for coronary artery disease and could also have left sided congestive heart failure. Despite IV Lasix, he has trace lower extremity edema on my examination for the past 2 days. We have no way of evaluating valve structure at this point. I was able to review that he had hypoxemia by an ABG in December 2018. I think this is been long-standing for the patient, and he has known sleep apnea. He is intolerant of sleep apnea therapy due to blistering in his mouth. He has nonspecific changes on his EKG was some T-wave flattening and his troponins are negative. He has hypertension and a history of smoking as his risk factors for coronary artery disease. He is quite short of breath. I'm reluctant to do a stress test here as I worry that we will add increased risk on his respiratory status and we do not have available dobutamine stress testing here. I'm also concerned that there could be more than just cor pulmonale at play although without doing an echocardiogram it's very difficult to say. For all of these reasons, I spoke with the blender / cook, Dr. Medina, who agreed to accept the patient in transfer for further evaluation and management. The patient currently states that his shortness of breath is somewhat improved. He is requiring 5-6 L of nasal cannula oxygen to maintain his saturations greater than 91%. He denies current chest pain. He denies nausea or vomiting. Assessment and Plan: 1. As per discharge assessments noted 2. Disposition: [place] [facility] [place]. Condition on discharge, stable, but given what appears to be chronic respiratory failure for possibly pulmonary and cardiac issues, he could certainly deteriorate 4. Diet: regular diet 5. Activities: As per physician's [facility] [place]. Follow-Up: 1. We have arranged an appointment with Dr. Carver as a new physician for the patient post discharge and he has an appointment card for that appointment 7. Medications at the Time of Discharge: Active Medications Generic Name Dose Route Start Last Admin Trade Name Freq PRN Reason Stop Dose Admin Albuterol Sulfate 2.5 mg 03/08/19 12:14 Albuterol Neb Soln 0.083% NEB Q1H PRN Shortness of Breath Arformoterol Tartrate 15 mcg 03/08/19 19:00 03/12/19 06:55 Brovana Neb Soln NEB 15 mcg RTBID JOSE M Administration Azithromycin 500 mg 03/10/19 10:00 03/12/19 10:52 Zithromax PO 03/14/19 10:01 500 mg Q24H JOSE M Administration Erythromycin 1 applic 03/10/19 10:30 03/12/19 09:48 Ilotycin Ophth Oint 0.5% EACH EYE 1 applic BID JOSE M Administration Furosemide 40 mg 03/10/19 13:00 03/12/19 07:27 Lasix Inj IVP 40 mg BID@0700,1300 JOSE M Administration Guaifenesin 600 mg 03/12/19 09:00 03/12/19 09:48 Mucinex Er Tab PO 600 mg BID JOSE M Administration Heparin Sodium (Porcine) 5,000 unit 03/08/19 12:14 03/12/19 04:07 Heparin Inj SUBCUT 5,000 unit Q8H JOSE M Administration Sodium Chloride 25 mls @ 200 mls/hr 03/08/19 12:14 03/11/19 08:31 Normal Saline 0.9% IV 200 mls/hr .Post Infusion PRN Administration No Primary IV for Flush ONLY Ceftriaxone Sodium 2 gm/ 100 mls @ 200 mls/hr 03/10/19 09:30 03/12/19 09:47 Sodium Chloride IV 200 mls/hr Q24H JOSE M Administration Lidocaine HCl 0.5 ml 03/08/19 12:14 Lidocaine Buffered Inj SUBD ONCE PRN IV Starts Lisinopril 40 mg 03/08/19 12:14 03/12/19 09:48 Prinivil PO 40 mg DAILY JOSE M Administration Prednisone 40 mg 03/09/19 09:00 03/12/19 09:48 Deltasone Tab PO 40 mg DAILY JOSE M Administration Tiotropium [place] 18 mcg 03/12/19 07:00 03/12/19 06:59 Spiriva Inhalation Cap INH 18 mcg RTDAILY JOSE M Administration 8. Time, care, counseling and coordination of care for this discharge is greater than 30 minutes. Exam - Vitals Vital Signs: Vital Signs Temperature 97.4 F Temperature Source Temporal Artery Scan Pulse Rate [Apical] 88 Pulse Rate [Pulse Oximeter] 82 Pulse Rate [Left Hand] 81 Pulse Rate 88 Respiratory Rate 20 Blood Pressure [Right Arm] 153/88 Blood Pressure [Left Arm] 125/57 Pulse Ox [Left Hand] 93 Pulse Ox 95 Oxygen Flow Rate [Left Hand] 5 Oxygen Flow Rate 5 Oxygen Delivery Method [Left Nasal Cannula Hand] Oxygen Delivery Method Nasal Cannula Height 5 ft 8 in Weight 281 lb 12.8 oz - General General Appearance: Cooperative, Obese - Head Head Exam: Normal Inspection, Normocephalic, Atraumatic - Eye Eye Exam: POSITIVE: No Scleral Icterus - ENT ENT Exam: POSITIVE: Mucous Membranes Moist - Neck Neck Exam: JVP is not Raised - Respiratory Respiratory Exam: POSITIVE: Breathing Non Labored, Coarse Breath Sounds - Cardiovascular Cardiovascular Exam: POSITIVE: RRR, No Murmur, No Clicks, No Gallops, No Rubs, No JVD - GI/Abdominal GI/Abdominal Exam: POSITIVE: Normal Bowel Sounds, Non Tender, Non Distended, Soft - Extremities Extremities Exam: POSITIVE: No Cyanosis Present, Clubbing Present, +1 Edema - Neurological Neurological Exam: POSITIVE: Alert, Oriented x 3, No Facial Droop, Speech Intact / Clear, Moves All Extremities Equally - Psychiatric Psychiatric Exam: POSITIVE: Normal Affect, Normal Mood Data Peritnent Studies: 03/08/19 03/08/19 03/08/19 06:19 13:02 18:17 WBC 9.80 Hgb Hct Plt Count Sodium Potassium Chloride Carbon Dioxide Anion Gap BUN Creatinine Estimated GFR BUN/Creatinine Ratio Glucose Calculated Osmolality Calcium Total Bilirubin AST ALT Alkaline Phosphatase Troponin I < 0.012 < 0.012 NT-Pro-B Natriuret Pep Total Protein Albumin Globulin Albumin/Globulin Ratio 03/08/19 03/11/19 03/11/19 23:50 04:29 04:29 WBC 7.81 Hgb 14.1 Hct 44.2 Plt Count 207 Sodium Potassium Chloride Carbon Dioxide Anion Gap BUN Creatinine Estimated GFR BUN/Creatinine Ratio Glucose Calculated Osmolality Calcium Total Bilirubin 0.4 AST 34 ALT 60 Alkaline Phosphatase 44 Troponin I < 0.012 NT-Pro-B Natriuret Pep Total Protein 5.8 L Albumin 3.3 L Globulin 2.5 Albumin/Globulin Ratio 1.30 03/12/19 04:11 WBC Hgb Hct Plt Count Sodium 144 Potassium 3.8 Chloride 100 Carbon Dioxide 36 H Anion Gap 8 BUN 25 H Creatinine 0.8 Estimated GFR > 60 BUN/Creatinine Ratio 31.25 H Glucose 96 Calculated Osmolality 301.0 H Calcium 8.6 L Total Bilirubin AST ALT Alkaline Phosphatase Troponin I NT-Pro-B Natriuret Pep 422 H Total Protein Albumin Globulin Albumin/Globulin Ratio Procedures: [address] [facility] [place] [address] PH: DD: [phone] FAX: [phone] ~DIAGNOSTIC IMAGING REPORT~ ------- Patient: GEOVANNI MORALEZ : 1950 Sex: M Age: 68 Exam Name: CT CTA Chest Non-Coronary [facility] Exam Date: 03/08/19 Report # : [id number] CPT Code: 72783 EMR/MR #: [id number] Ordering: MONSE RENDON Admiting: PABLO STANFORD MD. Primary: NONE,NONE Attending: PABLO STANFORD MD. Signed CT CTA Chest Non-Coronary [facility] 03/08/2019 7:40 AM [place] [facility] [place], elevated d-dimer Comparison: Chest x-ray from earlier the same day. CTA PE 01/18/2019. Procedure: CT angiography of the pulmonary arteries was performed after the administration of 70 mL of Ultravist 370 intravenous contrast. Findings: Patient body habitus creates artifact that limits evaluation of fine anatomic detail. There is normal opacification of the pulmonary arteries with no evidence of filling defect. Evaluation of the lungs demonstrates atelectasis and airspace disease in the medial right middle lobe and dependent left lower lobe. There is no pneumothorax or pleural effusion. No pulmonary nodules are noted. There is mild diffuse bronchial wall thickening without endobronchial lesion. There is no mediastinal or hilar lymphadenopathy. The aorta and branch vessels demonstrate normal course and caliber. Atheromatous aortic and coronary artery calcifications are present. Heart size is enlarged with no pericardial effusion. The thyroid exhibits normal CT morphology. The visualized upper abdominal structures are unremarkable. The osseous structures definitely changed. There is no evidence of acute or healing rib fractures. There is mild bilateral gynecomastia. Impression: 1. No main or segmental pulmonary embolism. 2. Medial right middle lobe and dependent left lower lobe atelectasis and airspace disease. Repeat imaging 6 weeks following completion of therapy is recommended in order to ensure resolution. 3. There is mild diffuse bronchial wall thickening without endobronchial lesion. This is a non-specific finding that is most commonly seen in the setting of acute or chronic bronchitis, as well as reactive airways disease. 4. Cardiomegaly without pericardial effusion or evidence of pulmonary edema. Dictated By: 03/08/19 1151 LEONCIO ARMSTRONG MD. Signed By: 03/08/19 1206 LEONCIO ARMSTRONG MD. Patient Problems - Patient Problem List (1) Acute on chronic respiratory failure with hypoxemia Current Visit: Yes Status: Acute Code(s): J96.21 - Acute and chronic respiratory failure with hypoxia Category: Medical (2) COPD exacerbation Current Visit: Yes Status: Acute Code(s): J44.1 - Chronic obstructive pulmonary disease with (acute) exacerbation Category: Medical (3) Hypoxia Current Visit: Yes Status: Acute Code(s): R09.02 - Hypoxemia Category: Medical (4) Pneumonia Current Visit: Yes Status: Acute Code(s): J18.9 - Pneumonia, unspecified organism Qualifiers: Pneumonia type: due to unspecified organism Laterality: right Lung location: middle lobe of lung Qualified Code(s): J18.1 - Lobar pneumonia, unspecified organism Category: Medical (5) Bacterial conjunctivitis of both eyes Current Visit: Yes Status: Acute Code(s): H10.9 - Unspecified conjunctivitis Category: Medical
== END 2019-03-12 13:24 | disposition short-term general hospital (02) | DRG 190 ==
LOC: ER 05:56 → MED/SURG 11:41
PROVIDERS: ADMIT Internal Medicine; ATTEND Internal Medicine